=== PATIENT | female | born 1980 | race Caucasian/White ===

== ENCOUNTER 2019-03-30 12:41 | Outpatient (CLI) | payer OTHER ==
--- NOTE | 2019-03-30 14:42 | MRI ---
EXAM: LEFT ANKLE MRI WIHTOUT IV CONTRAST: 03/30/19 HISTORY: Plantar fasciitis for one week, heel pain radiating up to ankle. Multiplanar and multisequence MRI examination of the left ankle and hindfoot is performed. There is d iffuse subcutaneous fat stranding and edema posteriorly and more so medially of the lower leg and ank le. There is an abnormal appearance to the plantar fascia with some focal thickening as well as some irregular thinning at the level of the insertion, evidence for a partial thickness undersided or calc aneal sided tear. There is some associated perifascial edema and fat stranding. Abnormal marrow signa l noted at the level calcaneal insertion with a small enthesophyte. Achilles tendon appears intact. F lexor, extensor, and peroneus tendons appear intact. Medial and lateral ankle collateral ligament com plexes are unremarkable. No talar dome osteochondral lesion. Sinus tarsi and spring ligament regions are unremarkable. IMPRESSION: 1. Abnormal plantar fascia, evidence for a partial thickness mid-grade undersurface tear with as sociated peritendinous fat stranding as well as some marrow edema in the calcaneal insertion, evidenc e for plantar fasciopathy in addition to plantar fasciitis and the partial thickness tear. 2. Nonspecific subcutaneous edema and fat stranding. 3. No evidence for other significant acute internal derangement involving the ankle and hindfoot . POS: [facility]
== END 2019-03-30 12:42 | disposition home or self-care (01) ==
LOC: SCSMRI 12:41
PROVIDERS: ATTEND Orthopaedic Surgery
DX: M79.672 Pain in left foot (principal); R60.0 Localized edema; R93.7 Abnormal findings on diagnostic imaging of other parts of musculoskeletal system

== ENCOUNTER 2019-12-16 08:59 | Outpatient (CLI) | payer BC | END 2019-12-16 09:00 | disposition home or self-care (01) | LOC: DTY/OP 08:59 | PROVIDERS: ATTEND Surgery | DX: E66.01 Morbid (severe) obesity due to excess calories (principal) | CPT/HCPCS: 97802 ==

== ENCOUNTER 2019-12-23 08:23 | Outpatient (CLI) | payer BC ==
--- NOTE | 2019-12-23 09:03 | RAD ---
PA AND LATERAL VIEWS CHEST: Date: 12/23/2019 HISTORY: Wellness exam. Preoperative. FINDINGS: The cardiomediastinum is normal. The lungs are expanded and clear. The bony thorax is normal. IMPRESSION: Normal exam. POS: [facility]
== END 2019-12-23 08:24 | disposition home or self-care (01) ==
LOC: BICRAD 08:23
PROVIDERS: ATTEND Internal Medicine
DX: Z00.00 Encounter for general adult medical examination without abnormal findings (principal)
CPT/HCPCS: 71046

== ENCOUNTER 2019-12-28 07:19 | Inpatient (IN) | payer OTHER ==
[2019-12-28] MEDS ORDERED: Heparin 5,000 UNITS/ML VIAL ONE (09:41)
[2019-12-28] MEDS ORDERED: Lidocaine 1% w/Epinephrine 1:100K 20 ML VIAL ONE (10:19)
[2019-12-28] MEDS ORDERED: Rocuronium Bromide 10 MG/ML (10ML VIAL) ONE (10:19)
[2019-12-28] MEDS ORDERED: Midazolam HCl 2 mg/2 ml Vial ONE (10:19)
[2019-12-28] MEDS ORDERED: PROPOFOL 200 MG/20 ML VIAL ONE (10:19)
[2019-12-28] MEDS ORDERED: Lidocaine 1% PF 5 ML VIAL ONE (10:19)
[2019-12-28] MEDS ORDERED: Dexamethasone 20 MG/5 ML VIAL ONE (10:19)
[2019-12-28] MEDS ORDERED: Ketorolac Tromethamine 30 MG/ML VIAL ONE (10:19)
[2019-12-28] MEDS ORDERED: Glycopyrrolate 0.2 MG/ML 5 ML SYRINGE ONE (10:19)
[2019-12-28] MEDS ORDERED: Ondansetron PF 4 MG/2 ML Vial ONE ×2 (10:19→12:08)
[2019-12-28] MEDS ORDERED: Bupivacaine 0.25% HCL 30 ML VIAL ONE (10:19)
[2019-12-28] MEDS ORDERED: Fentanyl 100 MCG/2 ML VIAL ONE ×4 (10:23→13:03)
[2019-12-28] MEDS ORDERED: Meperidine HCl/PF 25 MG/ML VIAL SLOW IVP PRN (11:36)
[2019-12-28] MEDS ORDERED: HYDROmorphone 2 MG/ML VIAL SLOW IVP PRN (11:36)
[2019-12-28] MEDS ORDERED: Ondansetron HCl/PF 4 MG/2 ML Vial IVP PRN (11:36)
[2019-12-28] MEDS ORDERED: Promethazine HCl 25 MG/ML VIAL SLOW IVP PRN (11:36)
[2019-12-28] MEDS ORDERED: Ondansetron PF 4 MG/2 ML Vial IVP PRN (11:42)
[2019-12-28] MEDS ORDERED: diphenhydrAMINE 50 MG/ML VIAL IVP PRN ×2 (11:42→11:57)
[2019-12-28] MEDS ORDERED: hydrALAZINE 20 MG/ML VIAL SLOW IVP PRN (11:42)
[2019-12-28] MEDS ORDERED: Dextrose 5% in Water 1,000 ML IV PRN (11:42)
[2019-12-28] MEDS ORDERED: Dextrose 50% Abboject 50 ML SYRINGE SLOW IVP PRN (11:42)
[2019-12-28] MEDS ORDERED: Promethazine HCl 25 MG/ML VIAL IM PRN (11:42)
[2019-12-28] MEDS ORDERED: Hydrocodone-Acetamin 15 ML UDCUP PO PRN (11:42)
[2019-12-28] MEDS ORDERED: diphenhydrAMINE 25 MG CAP PO PRN (11:57)
[2019-12-28] MEDS ORDERED: Naloxone HCl 0.4 mg/ml Vial IV PRN (11:57)
[2019-12-28] MEDS ORDERED: Zolpidem Tartrate 5 MG TAB PO PRN (11:57)
[2019-12-28] MEDS ORDERED: diphenhydrAMINE 50 MG/ML VIAL IM PRN (11:57)
[2019-12-28] MEDS ORDERED: Ketorolac Tromethamine 30 MG/ML VIAL IVP PRN (11:57)
[2019-12-28] MEDS ORDERED: fentaNYL Citrate/PF 2,000 MCG in Sodium Chloride 0.9% 60 ML IV PRN (11:57)
[2019-12-28] MEDS ORDERED: Sodium Chloride 0.9% (PF) 10 ML VIAL FS PRN (12:00)
[2019-12-28] MEDS ORDERED: Communication Order-Pharmacy FS SCH (12:00)
[2019-12-28] MEDS ORDERED: Promethazine HCl 25 MG/ML VIAL ONE (12:13)
[2019-12-28] MEDS: Ketorolac Tromethamine 30 MG/ML VIAL IVP SCH ×3 (13:50→23:38)
--- NOTE | 2019-12-28 15:08 | OP ---
DATE OF PROCEDURE: 12/28/2019 PREOPERATIVE DIAGNOSIS: Morbid obesity. PROCEDURES PERFORMED: Laparoscopic sleeve gastrectomy, esophagogastroscopy. INDICATIONS: The patient is a 39-year-old female, morbidly obese, who has attempted multiple weight loss programs without success. FINDINGS: A [id number]-[id number] bougie used. DESCRIPTION OF PROCEDURE: After informed consent was obtained, the patient was taken to the operating room and given general endotracheal anesthesia, placed in the supine position. Abdomen was prepped and draped in usual fashion. Local anesthesia was infiltrated subcutaneously and deep. A 12-mm incision was performed approximately 8 inches above the xiphoid slightly to the left. Veress needle inserted. Drop test performed. Pneumoperitoneum was created to a volume of 2 L of carbon dioxide. Utilizing a bladeless 12-mm trocar and 0-degree laparoscope, direct visual entry into the abdominal cavity was performed. Pneumoperitoneum was created to a pressure of 15 mmHg and the patient was placed in steep reverse Trendelenburg position. Andrea liver retractor inserted. Left lobe of the liver retracted superiorly. Pylorus was identified. A 12-mm port placed on the right beneath it and two 12s placed on the left subcostal. The omentum was taken off the greater curvature 5 cm from the pylorus utilizing the LigaSure. Short gastrics divided with LigaSure and left crura defined with the LigaSure. The video endoscope was inserted under direct vision and advanced into the sleeve. The staple line inspected. There was no bleeding. Staple line was then tested by inflating the new stomach with pressurized air and water. There was no air leak. Stomach was decompressed. Scope was removed. The remnant stomach removed from the abdomen through the left lateral port site. The fascia was closed with 0 Vicryl suture and the GraNee needle. Trocars and retractors were removed. The skin was closed with interrupted 4-0 Rapide. Dermabond applied. The patient tolerated the procedure well, transferred to Recovery in good condition. Sponge and needle count verified correct x2. Job ID: [id number]
[2019-12-28] MEDS: Ondansetron PF 4 MG/2 ML Vial IVP PRN ×2 (16:14→22:35)
[2019-12-28] MEDS: D5 1/2 NS w/20 mEq KCL 1,000 ML IV SCH ×2 (16:26→23:49)
[2019-12-28] MEDS: CEFAZOLIN 2 GM in Premix Bag 1 BAG IVPB SCH (17:42)
[2019-12-28] MEDS: Promethazine HCl 25 MG/ML VIAL IM PRN ×2 (19:50→23:38)
[2019-12-29] MEDS: CEFAZOLIN 2 GM in Premix Bag 1 BAG IVPB SCH (02:14)
[2019-12-29] MEDS: Promethazine HCl 25 MG/ML VIAL IM PRN ×2 (03:42→08:50)
[2019-12-29] MEDS: D5 1/2 NS w/20 mEq KCL 1,000 ML IV SCH ×2 (04:23→11:53)
[2019-12-29 05:32] LABS: #Lymphocytes 0.8 thou/uL (1.20-3.40); #Monocytes 1.2 thou/uL (0.11-0.59); #Neutrophils 13.9 thou/uL (1.40-6.50); %Eosinophils 0.1 % (0.0-10.0); %Lymphocytes 5.1 % (21.0-51.0); %Monocytes 7.7 % (0.0-10.0); Mean Corpuscular HGB CONC 34.5 g/dL (32.0-36.0); Mean Corpuscular Hemoglobin 30.9 pg (27.0-31.0); Mean Corpuscular Volume 89.7 fL (78.0-98.0); Mean Platelet Volume 7.7 fL (7.4-10.4); Platelet Count 176 thou/uL (130-400); RBC Distribution Width 11.7 % (11.5-14.5); Red Blood Cell (RBC) Count 3.89 mill/uL (4.20-5.40)
[2019-12-29] MEDS: Ondansetron PF 4 MG/2 ML Vial IVP PRN (05:39)
[2019-12-29] MEDS: Ketorolac Tromethamine 30 MG/ML VIAL IVP SCH ×3 (05:39→17:04)
[2019-12-29 05:51] LABS: Anion Gap 11 mmol/L (10-20); BUN (Urea Nitrogen) 8 mg/dL (7.0-18.7); Calc. Creatinine Clearance 195 mL/min (70-130); Calcium 8.3 mg/dL (7.8-10.44); Carbon Dioxide 22 mmol/L (22-29); Chloride 102 mmol/L (98-107); Estimated GFR-MDRD Greater than 90; Glucose 160 mg/dL (70-105); Potassium 4.1 mmol/L (3.5-5.1); Sodium 131 mmol/L (136-145)
[2019-12-29 06:04] VITALS: BMI 37.8
--- NOTE | 2019-12-29 08:40 | RAD ---
XR UGI Single Contrast No Air HISTORY: Recent vertical sleeve gastrectomy Post bariatric surgery evaluation Procedure: Single sip swallow study was performed with administration of 15 mL contrast under fluoros copy. FINDINGS: Contrast traverses the gastroesophageal junction. No leak or evidence of obstruction. IMPRESSION: Normal study.
[2019-12-29] MEDS ORDERED: Pantoprazole 40 MG VIAL IVP SCH (09:00)
[2019-12-29] MEDS ORDERED: FLU VACC QS2019-20(6MOS UP)/PF 60 MCG/0.5 ML SYRINGE IM ONE (09:00)
[2019-12-29] MEDS ORDERED: Enoxaparin Sodium 40 MG/0.4 ML SYRINGE SC SCH (09:00)
[2019-12-29] MEDS: Hydrocodone-Acetamin 15 ML UDCUP PO PRN ×2 (10:16→16:01)
[2019-12-29 15:26] VITALS: BP 108/76; TEMP 98.3
--- NOTE | 2019-12-30 09:43 | DIS ---
DATE OF ADMISSION: 12/28/2019 DATE OF DISCHARGE: 12/29/2019 DISCHARGE DIAGNOSIS: Morbid obesity. PROCEDURES DURING ADMISSION: Laparoscopic sleeve gastrectomy, intraoperative esophagogastroscopy, and postoperative Gastrografin swallow. HOSPITAL COURSE: The patient was admitted, taken to the operating room, where she underwent sleeve gastrectomy. Postoperatively, initially, she had quite a bit of pain, but that has now gotten much better. She is tolerating her pain with p.o. pain medications. She is tolerating liquids. She is discharged home on hydrocodone and Zofran. She will follow up with me in 2 weeks. Job ID: [id number]
== END 2019-12-29 18:00 | disposition home or self-care (01) | DRG 621 ==
LOC: SURG A 08:38 → SURG B 13:29
PROVIDERS: ADMIT Surgery; ATTEND Surgery
PROC: 0DB64Z3 Excision of Stomach, Percutaneous Endoscopic Approach, Vertical (ICD-10-PCS; principal; 2019-12-28)
PROC: 0DJ68ZZ Inspection of Stomach, Via Natural or Artificial Opening Endoscopic (ICD-10-PCS; 2019-12-28)
DX: E66.01 Morbid (severe) obesity due to excess calories (principal); G47.30 Sleep apnea, unspecified; F32.9 Major depressive disorder, single episode, unspecified; Z90.710 Acquired absence of both cervix and uterus; Z90.89 Acquired absence of other organs; Z68.37 Body mass index [BMI] 37.0-37.9, adult
CPT/HCPCS: 36415; 36416; 74240; 80048; 85025; 88307; 88312; C9113; J0690; J1100; J1644; J1650; J1885; J2001; J2250; J2405; J2550; J2704; J3010; S0020

== ENCOUNTER 2020-05-23 07:26 | Outpatient (CLI) | payer BC ==
--- NOTE | 2020-05-23 09:18 | MRI ---
MRI cervical spine noncontrast: 05/23/2020 HISTORY: 39-year-old female with cervical radiculopathy. M 54.12. Neck pain radiating to right upper extremity with hypesthesia, paresthesia, and weakness, of right hand. COMPARISON: None FINDINGS: Vertebral body heights are maintained. Alignment is normal. Cervical spinal cord is normal in size an d signal. Bone marrow signal is normal. No high-grade facet DJD at any level. Disc spaces are maintained at all levels. C1-2: No central stenosis. C2-3: Small focal central disc protrusion or disc-osteophyte complex, does not contact spinal cord. N o central or neural foraminal stenosis. C3-4: Normal C4-5: Small central disc herniation contacts the ventral surface of the spinal cord. Transverse diame ter of the spinal canal is normal, but the AP dimension is decreased moderately. No neural foraminal stenosis. There is superior and inferior migration of this disc herniation qualifying this as a small disc extrusion. C5-6: There is a moderately large right-central and right lateral disc herniation which completely ef faces the right lateral aspect of the spinal canal, and extending into the right neural foramen causing severe right neural foraminal stenosis. This markedly impinges on the right C6 nerve root wit hin the right lateral aspect of the spinal canal and within the right neural foramen. The disc herniation has a smaller central component. Overall, there is moderate central spinal canal stenosis, with approximately 30-40% reduction in cross-sectional area of the spinal canal. No high-grade left neural foraminal stenosis. C6-7: No central or neural foraminal stenosis. C7-T1: No central or neural foraminal stenosis. Small central disc protrusion. IMPRESSION: 1. At C5-6, there is a moderately large right-central and right lateral disc herniation which signifi cantly compresses the right C6 nerve root, responsible for the patient's radiculopathy. 2. Small central disc herniation at C4-5, contacting the ventral surface of the spinal cord.
== END 2020-05-23 07:27 | disposition home or self-care (01) ==
LOC: BICMRI 07:26
PROVIDERS: ATTEND Nurse Practitioner Family
DX: M50.121 Cervical disc disorder at C4-C5 level with radiculopathy (principal)
CPT/HCPCS: 72141

== ENCOUNTER 2020-07-09 07:55 | Outpatient (CLI) | payer BC ==
--- NOTE | 2020-07-09 08:17 | RAD ---
Cervical spine 4 views HISTORY: Neck pain. Radiculopathy. Prior surgery. FINDINGS: Vertebral body heights are maintained. Anterior operative fusion at the C5-6 level. No ayad -hardware lucency. Metallic markers associated with interbody fusion material within the confines of the disc space at the postoperative level. At the C4-5 level, there is mild disc space narrowing. Minimal retrolisthesis. Cervicothoracic junction is intact. No acute fracture or dislocation. IMPRESSION : Postoperative and degenerative changes of the lower cervical spine. No evidence of hardware complicat ion.
== END 2020-07-09 07:56 | disposition home or self-care (01) ==
LOC: BICRAD 07:55
PROVIDERS: ATTEND Physician Assistant
DX: M48.02 Spinal stenosis, cervical region (principal); M50.10 Cervical disc disorder with radiculopathy, unspecified cervical region; M47.22 Other spondylosis with radiculopathy, cervical region; Z98.1 Arthrodesis status
CPT/HCPCS: 72040

== ENCOUNTER 2021-05-21 14:52 | Outpatient (CLI) | payer BC | END 2021-05-21 14:53 | disposition home or self-care (01) | LOC: BICMAMMO 14:52 | PROVIDERS: ATTEND Internal Medicine | DX: N64.4 Mastodynia (principal) | CPT/HCPCS: G0279 ==

== ENCOUNTER 2023-12-10 07:45 | Outpatient (CLI) | payer BC | END 2023-12-10 07:46 | disposition home or self-care (01) | LOC: BICMAMMO 07:45 | PROVIDERS: ATTEND Internal Medicine | DX: Z12.31 Encounter for screening mammogram for malignant neoplasm of breast (principal) | CPT/HCPCS: 77063; 77067 ==

== ENCOUNTER 2023-12-18 08:04 | Outpatient (CLI) | payer BC | END 2023-12-18 08:05 | disposition home or self-care (01) | LOC: SCSMRI 08:04 | PROVIDERS: ATTEND Internal Medicine | DX: M51.16 Intervertebral disc disorders with radiculopathy, lumbar region (principal); M51.37 Other intervertebral disc degeneration, lumbosacral region; M51.27 Other intervertebral disc displacement, lumbosacral region | CPT/HCPCS: 72148 ==